=== PATIENT | female | born 1955 | race Caucasian/White ===

== ENCOUNTER 2017-05-27 08:35 | Day surgery (SDC) | payer OTHER ==
[2017-05-17 08:34] VITALS: Ht 170.2 cm; Wt 123.3 kg
--- NOTE | 2017-05-17 08:57 | PAT Medication Instructions ---
Service Date May 17, 2017. Current Home Medication List Albuterol Hfa (Ventolin Hfa), 2-4 PUFFS INH Q6H PRN for Shortness of Breath Calcium & Phosphorus W/ Vitami (Citracal Calcium Gummies), 2 OR HS Flurandrenolide (Cordran), 1 DOSE TOP PRN Omeprazole (Omeprazole), 20 MG PO QAM Propranolol (Inderal), 60 MG PO QAM Triamcinolone Acet (Triamcinolone Acetonide), 1 APPLN TOP BID PRN for PRN Medication Instructions For Your Scheduled Surgery - Hold the following medications 24 hours prior to surgery: Flurandrenolide (Cordran), 1 DOSE TOP PRN Triamcinolone Acet (Triamcinolone Acetonide), 1 APPLN TOP BID PRN for PRN - Take the following medications the morning of surgery with a sip of water: Omeprazole (Omeprazole), 20 MG PO QAM Propranolol (Inderal), 60 MG PO QAM Albuterol Hfa (Ventolin Hfa), 2-4 PUFFS INH Q6H PRN for Shortness of Breath (if needed) - Take the following medications as scheduled the night before surgery: Calcium & Phosphorus W/ Vitami (Citracal Calcium Gummies), 2 OR HS Albuterol Hfa (Ventolin Hfa), 2-4 PUFFS INH Q6H PRN for Shortness of Breath (if needed) If you have any questions please call us at [phone] or [phone] or [phone]
[~2017-05-27] VITALS: Ht 170.2 cm; Wt 123.3 kg
[~2017-05-27 08:35] MED LIST: ATROPINE SULFATE 0.1 MG/ML 5ML SYR IV PRN; CALC1CHW24 OR; CEFAZOLIN 3000MG IV PUSH 15 ML IV SCH; EpHEDrine SULFATE INJ 50 MG/ML AMP IV PRN; FENTANYL CITRATE INJ 50 MCG/1 ML 2 ML VIAL IV PRN; LACTATED RINGER'S 1000ML 1,000 ML IV SCH; OMEP20TA PO; ONDANSETRON INJ 2 MG/ML 2 ML VIAL IV PRN; PROP1TAB PO; TRMO115 TOP; VNTHFA/IN INH; [UNRECOGNIZED DRUG - CODE] TOP
[2017-05-27 09:08] VITALS: BP 133/43; PULSE 64; TEMP 36.9; O2SAT 97
[2017-05-27] MEDS ORDERED: FENTANYL CITRATE INJ 50 MCG/1 ML 2 ML VIAL ONE (09:35)
[2017-05-27] MEDS ORDERED: MIDAZOLAM HCL 1 MG/ML 2ML VIAL ONE (09:35)
[2017-05-27] MEDS ORDERED: CEFAZOLIN SOD 1 GM VIAL ONE (10:01)
[2017-05-27] MEDS ORDERED: CONRAY 60% 50 ML VIAL ONE (10:01)
[2017-05-27] MEDS ORDERED: HEPARIN SOD (PORCINE) 1000 UNIT/ML 10 ML VIAL ONE (10:02)
[2017-05-27] MEDS ORDERED: BUPIVACAINE 0.5 % 5 MG/1 ML MPF 30ML VIAL ONE (10:02)
--- NOTE | 2017-05-27 10:04 | History & Physical Bridge Note ---
H&P Re-Evaluation Bridge Note: I have examined the patient, reviewed the History & Physical and in the interval since the performance of the History & Physical I have noted the following changes of clinical significance: No changes noted
[2017-05-27] MEDS ORDERED: ONDANSETRON INJ 2 MG/ML 2 ML VIAL ONE (11:01)
[2017-05-27] MEDS ORDERED: NEOSTIGMINE METHYLSULFATE 5 MG/5 ML SYR ONE (11:01)
[2017-05-27] MEDS ORDERED: PROPOFOL IV EMULSION 10 MG/ML 20 ML VIAL IV ONE (11:01)
[2017-05-27] MEDS ORDERED: LIDOCAINE HCL 2% 2 ML VIAL (20MG/ML) ONE (11:01)
[2017-05-27] MEDS ORDERED: GLYCOPYRROLATE INJ 0.2 MG/ML VIAL ONE ×2 (11:01→11:34)
[2017-05-27] MEDS ORDERED: DEXAMETHASONE SOD INJ 4 MG/ML VIAL ONE (11:01)
[2017-05-27] MEDS ORDERED: SODIUM CHLORIDE 0.9% 1000ML 1,000 ML IV SCH (12:19)
--- NOTE | 2017-05-27 12:19 | [facility] Post Operative Brief Note ---
Immediate Operative Summary Operative Date May 27, 2017. Pre-Operative Diagnosis calculus of gallbladder, chronic cholecystitis Post-Operative Diagnosis calculus of gallbladder, chronic cholecystitis Procedure(s) Performed laparoscopic cholecystectomy Surgeon Dr. Zev Carrillo Radiological Defense Officer Surgeon(s) Dara Huff Estimated Blood Loss 7ml Findings See dictation Specimens A: Gallbladder and contents Drains None Anesthesia General Complication(s) None Disposition Recovery Room / PACU
--- NOTE | 2017-05-27 12:21 | Discharge Instructions ---
Discharge Instructions Date of Service May 27, 2017. Admission Reason for Admission: Calculus Of Gallbladder W/O Cholecystitis W/O Obst Discharge Discharge Diagnosis / Problem: Same Discharge Goals Goal(s): Decrease discomfort Activity Recommendations Activity Limitations: per Instructions/Follow-up section Lifting Limitations: no more than 10 pounds (for 2 weeks) Shower/Bathe: tomorrow (shower only) Post-Surgical ~ Discharge Instructions Activity Recommendations: - lifting limitation: (10 pounds for 2 weeks), - exercise/sex/sports limit: (nonstrenuous for 2 weeks), - driving or machine use limit: (none for 1 week), - Shower/bathe limit: (may shower beginning tomorrow) Diet: - Resume previous diet SPECIAL CARE INSTRUCTIONS: - May shower in 24 hours. Let water run over area and pat dry. - Leave steri strips on for one week. - Call the surgeon's office with any questions or concerns - - (ex. temperature higher than 101 degrees F, excessive bleeding or pain). MEDICATIONS: - Resume previous medications unless instructed otherwise by your surgeon. - Ibuprofen 600 mg every 6 hours with food - Percocet 1 every 4 hours, as needed for pain FOLLOW UP VISIT: - If not already scheduled, please call the office to schedule a two week follow-up appointment. Office number . Current Hospital Diet Patient's current hospital diet: Discharge Diet Recommended Diet: Regular Diet Procedures Procedures Performed: laparoscopic cholecystectomy Pending Studies Studies pending at discharge: yes List of pending studies: Pathology Medical Emergencies . Who to Call and When: Medical Emergencies: If at any time you feel your situation is an emergency, please call 911 immediately. . Non-Emergent Contact Non-Emergency issues call your: Primary Care Provider, Surgeon Call Non-Emergent contact if: your pain is worsening, wound has increased redness, wound has increased pain . "Provider Documentation" section prepared by Zev Carrillo. . VTE Core Measure Inpt VTE Proph given/why not?: Treatment not indicated
[2017-05-27] MEDS: FENTANYL CITRATE INJ 50 MCG/1 ML 2 ML VIAL IV PRN ×4 (12:29→12:48)
[2017-05-27] MEDS ORDERED: MoRPHine SULFATE 4 MG/ML 1 ML CARP\\VIAL IV PRN (12:30)
[2017-05-27] MEDS ORDERED: EpHEDrine SULFATE INJ 50 MG/ML AMP IV PRN (12:30)
[2017-05-27] MEDS ORDERED: ONDANSETRON INJ 2 MG/ML 2 ML VIAL IV PRN ×2 (12:30)
[2017-05-27] MEDS ORDERED: OXYCODONE/ACETAMINOPHEN 5-325 TAB PO PRN (12:30)
[2017-05-27] MEDS ORDERED: ATROPINE SULFATE 0.1 MG/ML 5ML SYR IV PRN (12:30)
--- NOTE | 2017-05-27 12:57 | Anesthesiology Progress Note ---
Anesthesia Post Op Note Date & Time May 27, 2017 at 12:57 Vital Signs Pain Intensity: 3 Vital Signs Past 12 Hours Date Time Temp Pulse Resp B/P (MAP) Pulse Ox O2 Delivery O2 Flow Rate FiO2 05/27/17 12:37 165/93 05/27/17 12:35 48 19 05/27/17 12:35 48 19 100 05/27/17 12:32 168/90 05/27/17 12:30 47 17 100 05/27/17 12:30 46 17 05/27/17 12:26 174/85 05/27/17 12:25 64 27 99 05/27/17 12:25 49 27 05/27/17 12:22 160/78 05/27/17 12:20 73 22 97 05/27/17 12:20 52 22 05/27/17 12:16 169/87 05/27/17 12:15 36.2 54 12 169/87 95 Oxymask 10 05/27/17 12:15 55 05/27/17 12:15 55 95 05/27/17 09:08 36.9 64 18 133/43 (73) 97 Room Air Notes Mental Status: alert / awake / arousable, participated in evaluation Pt Amnestic to Procedure: Yes Nausea / Vomiting: adequately controlled Pain: adequately controlled Airway Patency, RR, SpO2: stable & adequate BP & HR: stable & adequate Hydration State: stable & adequate Anesthetic Complications: no major complications apparent
[2017-05-27 13:20] VITALS: BP 160/80; PULSE 70; TEMP 36.5; O2SAT 98
--- NOTE | 2017-05-27 13:22 | OPERATIVE REPORT ---
DATE OF OPERATION: 05/27/2017 PREOPERATIVE DIAGNOSES: Cholelithiasis, chronic cholecystitis. POSTOPERATIVE DIAGNOSES: Same. PROCEDURE: Laparoscopic cholecystectomy. SURGEON: Dr. Carrillo. FINDINGS: The gallbladder had one large stone within its lumen. The gallbladder was not dilated. The cystic duct was not dilated. The liver was of normal size and contour and the visible bowel appeared normal. TECHNIQUE: The patient was given a general anesthetic and the area was prepped and draped in usual sterile fashion. Transverse incision was made below the umbilicus, carried down through the subcutaneous tissue to the fascia which was grasped with 2 Shayla clamps and incised between. The peritoneum was identified, incised, and the introducer was placed bluntly. The abdomen was then insufflated to a pressure of 15 mmHg with carbon dioxide. The upper midline, mid clavicular and anterior axillary introducers were placed under direct vision through small skin incisions. Traction was placed on the gallbladder. There were some adhesions of the omentum to the body and infundibulum area of the gallbladder and these were taken down using blunt and cautery dissection where appropriate. That exposed the infundibulum, traction was placed on that. The peritoneum was opened on the lateral side of the infundibulum peeled down towards the common bile duct. Infundibulum was dissected away from the liver on that lateral side. Further dissection was carried anterior to the infundibulum and medially into the triangle of Calot, which was opened. The infundibulum was dissected away from the liver on that lateral side and a window could be created posteriorly. Further fatty tissue and lymphatics were peeled off the anterior surface of the cystic duct and it was then isolated medially, laterally and posteriorly allowing me to confirm the junction of the cystic duct and gallbladder. Three clips were placed on the proximal cystic duct, one near the gallbladder and was divided. That allowed good visualization of the cystic artery. It was isolated, clamped twice proximally and once near the gallbladder and divided. The gallbladder was then peeled off the liver bed. In doing so and 1 more tubular structure that was either a small branch of the artery or lymphatic was clamped and divided. The gallbladder was then successfully removed from the liver using cautery. It was placed into an Endobag and brought out through the upper midline incision where I had to open the gallbladder and crush the large stone in order to extract it within the bag, but that was accomplished. That introducer was replaced and the liver edge was elevated. The gallbladder bed of the liver was inspected. There was no bleeding. The subdiaphragmatic and subhepatic spaces were irrigated and the irrigation was removed and that was repeated until the return was clear. The gallbladder bed of the liver was again inspected and there was no bleeding. The previously placed clips were inspected and were intact. The gas was allowed to escape and the introducers were removed. The fascia of the umbilical introducer site was closed with interrupted 0 Vicryl and skin of all the incisions was closed with 4-0 Monocryl in either an interrupted or running subcuticular fashion. The skin was anesthetized with 0.5% Marcaine. The skin was cleansed, dried, benzoin placed, Steri-Strips applied. Estimated blood loss was 7 mL. Sponge, needle and instrument counts were correct prior to closure. The patient tolerated surgical procedure without complication and was transferred to recovery. I attest to the content of the Intraoperative Record and any orders documented therein. Any exception s are noted below.
[2017-05-27 13:48] VITALS: BP 176/85; PULSE 52; TEMP 36.3; O2SAT 98
[2017-05-27 14:20] VITALS: BP 163/84; PULSE 56; TEMP 36.5; O2SAT 100
== END 2017-05-27 14:00 | disposition home or self-care (01) ==
LOC: C.ACU 08:35
PROVIDERS: ATTEND Surgery
DX: K80.10 Calculus of gallbladder with chronic cholecystitis without obstruction (principal); L93.1 Subacute cutaneous lupus erythematosus; E78.5 Hyperlipidemia, unspecified; K21.9 Gastro-esophageal reflux disease without esophagitis; L40.9 Psoriasis, unspecified; M17.10 Unilateral primary osteoarthritis, unspecified knee; Z87.891 Personal history of nicotine dependence; Z79.899 Other long term (current) drug therapy